=== PATIENT | female | born 1960 | race African-American/Black ===

== ENCOUNTER → 2019-06-17 | Outpatient (CLI) | payer MEDICARE, MEDICAID ==
--- NOTE | 2019-06-17 15:10 | RAD ---
Right rib series with PA chest: Reason for examination: Right rib pain. A TENS unit is present at the thoracic spine The heart size is normal. Mediastinum is unremarkable. Lung dorantes are clear. No acute bony abnormalities evident. 3 views of the right ribs show no evidence of fracture. The bone density is normal. IMPRESSION: No acute cardiopulmonary disease. No right rib abnormality evident. Electronically signed by: Natali Ramirez MD (06/17/2019 12:36 PM) [id number]
== END ==
LOC: PMG 11:59
PROVIDERS: ATTEND Physician Assistant
DX: R07.81 Pleurodynia (principal)
CPT/HCPCS: 71101

== ENCOUNTER → 2019-07-23 | Outpatient (CLI) | payer MEDICARE, MEDICAID ==
[~2019-07-23] MED LIST: IOHEXOL 300 MG/ML 75 ML VIAL. IV ONE
--- NOTE | 2019-07-23 13:29 | RAD ---
CT CHEST ABDOMEN W/CONTRAST dated 07/23/2019 12:00 AM Indication:Ll pleuritic pain.Chest pain.. Comparison: No comparison is available. Technique: Contiguous axial imaging of the chest and abdomen performed following the intravenous administration of 75 cc Isovue-370. One or more of the following individualized dose reduction techniques were utilized for this examination: 1. Automated exposure control 2. Adjustment of the mA and/or kV according to patient size 3. Use of iterative reconstruction technique Findings: Heart size within normal limits. No pericardial effusion. Scattered coronary calcifications. No mediastinal, hilar or axillary lymphadenopathy. Thyroid gland unremarkable. Central airways are patent. There is moderate emphysema. Lungs are clear. No consolidation or pleural effusion. No pneumothorax. No suspicious pulmonary nodule or mass. Liver, spleen, pancreas, adrenal glands unremarkable. There are small low-density foci within the liver that most likely represent cysts but are difficult to accurately characterize. No biliary ductal dilatation. Gallbladder unremarkable. There is a small nodular focus of hyperenhancement within the lateral segment left lobe liver on coronal image 46 that measures 7 mm in size. This area is isodense to liver on the venous phase. Adrenal glands and kidneys are unremarkable. No hydronephrosis. Well-circumscribed low-density focus at the upper pole right kidney, likely cyst. Unopacified GI tract is normal in caliber and contour. No focal bowel wall thickening. No inflammatory stranding in the mesentery. The appendix is not clearly identified. No ascites or lymphadenopathy. There are atherosclerotic aspirations of the abdominal aorta and bilateral iliac system without focal aneurysm. Bone windows show no acute findings. Multilevel spondylosis. Spinal stimulator device in place. No apparent rib fracture. IMPRESSION: 1. No acute abnormality of chest. 2. Moderate emphysema. 3. Indeterminate small hyperenhancing nodule within the left lobe liver, possibly a small flash filling hemangioma or area of focal nodular hyperplasia. If there is a known history of malignancy, metastatic cannot be excluded. Correlate clinically. Follow-up imaging may be warranted to ensure stability. Electronically signed by: Mohit Delarosa MD (07/23/2019 1:26 PM) [facility]
== END ==
LOC: CT 12:06
PROVIDERS: ATTEND Physician Assistant
DX: J43.9 Emphysema, unspecified (principal); R92.8 Other abnormal and inconclusive findings on diagnostic imaging of breast; R91.1 Solitary pulmonary nodule; I25.10 Atherosclerotic heart disease of native coronary artery without angina pectoris
CPT/HCPCS: 71260; 74160; Q9967

== ENCOUNTER → 2019-08-06 | Outpatient (CLI) | payer MEDICARE, MEDICAID ==
--- NOTE | 2019-08-06 13:16 | RAD ---
ABDOMEN COMPLETE History: Right upper quadrant abdominal pain, left liver lesion Comparison: CT exam July 23, 2019 Findings: Multiple sonographic images of the abdomen are submitted. Liver lesion on CT is not well visualized by ultrasound. Hepatic echogenicity is within normal limits. Pancreas is poorly seen due to bowel gas. Right kidney measured 10.8 x 4.5 x 3 cm, no hydronephrosis. There is a 3 to hypoechoic lesion laterally of the mid to superior right kidney about 1.7 cm greatest dimension. Left kidney measured 9.8 x 4.9 x 4.5 cm, no hydronephrosis, some contour deformity likely due to a dromedary hump. Spleen is poorly visualized due to bowel gas. Abdominal aorta and inferior vena cava are also not well visualized due to bowel gas. Gallbladder is present without intraluminal abnormality, wall thickening, or pericholecystic fluid. Common bile duct is within normal limits about 0.2 cm. Impression: 1. Abdominal structures are poorly seen due to bowel gas as stated. Liver lesion on CT is not well visualized by ultrasound, would be more accurately characterized by MRI or CT follow-up to assess stability. There is a right renal cyst. Electronically signed by: Jonas Juarez MD (08/06/2019 1:13 PM) [id number]
--- NOTE | 2019-08-06 14:16 | RAD ---
CLINICAL INDICATION: HANK JOHNSON, who is 58 years of age, presents for further evaluation of a mammographic abnormality in the left breast. COMPARISON: Prior mammographic imaging dating back to 06/27/2016 TECHNIQUE: Diagnostic views of the right breast were obtained including spot compression views in the CC and MLO projection, utilizing digital technique. BREAST COMPOSITION: There are scattered fibroglandular densities. MAMMOGRAM FINDINGS: Well circumscribed masses are seen in the upper outer left breast approximately 5-6 cm from the nipple, better evaluated on the spot compression images. A clip is seen within the larger lesion. No suspicious calcifications are seen. Therefore ultrasound was performed. ULTRASOUND FINDINGS: Targeted ultrasound of the mammographic area of concern was performed. 1:00 position, 4 cm from the left nipple: A 0.7 cm well-circumscribed hypoechoic structure mass is seen with internal echogenic focus, possibly biopsy clip. 2:00 position, 3 cm from the left nipple: A 0.3 cm lentiform lesion is seen with central increased echogenicity, likely benign-appearing lymph node. IMPRESSION: 1. Left breast probably benign mass for which follow up is recommended. RECOMMENDATION: In the absence of new clinical symptoms or change in physical exam, short term follow up diagnostic examination is recommended in 6 months to assess for interval stability to include mammogram and ultrasound. BIRADS 3: PROBABLY BENIGN Electronically signed by: Ellis Kolb MD (08/06/2019 2:13 PM) [facility]
== END ==
LOC: US 12:35
PROVIDERS: ATTEND Physician Assistant
DX: N28.1 Cyst of kidney, acquired (principal); K76.9 Liver disease, unspecified; R92.8 Other abnormal and inconclusive findings on diagnostic imaging of breast
CPT/HCPCS: 76641; 76700; 77065

== ENCOUNTER → 2019-08-27 | Outpatient (CLI) | payer MEDICARE, MEDICAID ==
--- NOTE | 2019-08-27 09:29 | RAD ---
SMALL BOWEL SERIES 08/27/2019. Reason for study: Abdominal pain. Comparison studies: None.. Technique: Preliminary sample box maker film of the abdomen was obtained. Then following ingestion of oral barium, 7 serial images of the abdomen were obtained to assess progress of contrast throughout the small bowel. Findings: Transit time through the small bowel is normal. No evidence for bowel obstruction or dilatation. Jejunal and ileal fold patterns are normal with no evidence for inflammatory bowel disease. There is a small ileal diverticulum measuring 0.8 cm. The terminal ileum was unremarkable. Battery pack projects over the right lower abdomen with leads projecting over the spinal canal. Surgical clips are identified in the right pelvis. IMPRESSION: 1. No evidence for small bowel obstruction. 2. Small bowel fold pattern appears to be within normal limits. 3. Small small bowel diverticulum in the left lower quadrant, likely within an ileal bowel loop. Electronically signed by: Naida Ortega MD (08/27/2019 9:26 AM) [facility]
== END ==
LOC: RAD 07:46
PROVIDERS: ATTEND Internal Medicine Gastroenterology
DX: K57.10 Diverticulosis of small intestine without perforation or abscess without bleeding (principal)
CPT/HCPCS: 74250

== ENCOUNTER → 2019-09-04 | Outpatient (CLI) | payer MEDICARE, MEDICAID ==
--- NOTE | 2019-09-04 09:38 | RAD ---
Meckel scan INDICATION: Abdominal pain for 2 months COMPARISON: Small bowel series of 08/27/2019 TECHNIQUE: Imaging of the abdomen was performed continuously over 48 minutes following IV administration of 10 mCi of technetium pertechnetate. FINDINGS: Physiologic gastric activity is evident in the stomach with progressive accumulation of radiopharmaceutical in the urinary tract. However, no abnormal uptake is otherwise identified in the bowel to suggest the presence of ectopic gastric mucosa. IMPRESSION: Negative Meckel's scan Electronically signed by: Salbador Irving MD (09/04/2019 9:35 AM) [id number]
== END | disposition home or self-care (01) ==
LOC: NM 07:34
PROVIDERS: ATTEND Internal Medicine Gastroenterology
DX: R10.9 Unspecified abdominal pain (principal)
CPT/HCPCS: 78290; 96374; A9512

== ENCOUNTER 2019-10-09 15:56 | Emergency (ER) | payer MEDICARE, MEDICAID ==
[~2019-10-09] VITALS: Ht 149.9 cm; Wt 57.7 kg
[2019-10-09] MEDS ORDERED: IV NORMAL SALINE 1,000ML 1,000 ML IV ONE (16:30)
--- NOTE | 2019-10-09 16:38 | PHYS DOC ---
General Adult EDM: Chief Complaint: HEADACHE HPI: HPI: 59-year-old female presents with headache. She has had this headache since yesterday. It starts in the office and radiates forward to the front of her head. This is similar to her previous migraines. She only gets them every few months. She tries not to come to the emergency room. This will just go away. She denies any trauma, falls, or other injury. She has photophobia. She does not complain of any other symptoms at this time. Review of Systems: Review of Systems: Constitutional: Denies fever or chills Eyes: Denies change in visual acuity HENT: Denies nasal congestion or sore throat Respiratory: Denies cough or shortness of breath Cardiovascular: Denies chest pain or edema GI: Denies abdominal pain, nausea, vomiting, bloody stools or diarrhea : Denies dysuria Musculoskeletal: Denies back pain or joint pain Integument: Denies rash Neurologic: Headache. Denies focal weakness or sensory changes Endocrine: Denies polyuria or polydipsia Lymphatic: Denies swollen glands Psychiatric: Denies depression or anxiety Heart Score: Risk Factors: Risk Factors: DM, Current or recent (<one month) smoker, HTN, HLP, family history of CAD, obesity. Risk Scores: Score 0 - 3: 2.5% MACE over next 6 weeks - Discharge Home Score 4 - 6: 20.3% MACE over next 6 weeks - Admit for Clinical Observation Score 7 - 10: 72.7% MACE over next 6 weeks - Early Invasive Strategies Current Medications: Current Meds: Current Medications Medications (Trade) Dose Ordered Sig/Raghu Start Time Stop Time Status Last Admin Dose Admin Sodium Chloride 1,000 ml @ 1,000 mls/hr 1X ONCE 10/09/19 16:30 10/09/19 17:29 Allergies: Allergies: Allergies Coded Allergies Type Severity Reaction Last Updated Verified watermelon Allergy Severe Hives 10/09/19 Yes Penicillins Allergy Intermediate 10/09/19 Yes milk Allergy Intermediate 10/09/19 Yes prednisone Allergy Intermediate 10/09/19 Yes tetracycline Allergy Intermediate 10/09/19 Yes aspirin Allergy Mild Nausea and Vomiting 10/09/19 Yes Physical Exam: PE: Constitutional: Well developed, well nourished, no acute distress, non-toxic appearance. [] HENT: Normocephalic, atraumatic, bilateral external ears normal, oropharynx moist, no oral exudates, nose normal. [] Eyes: PERRLA, EOMI, conjunctiva normal, no discharge. Photophobia. [] Neck: Normal range of motion, no tenderness, supple, no stridor. [] Cardiovascular: Heart rate regular rhythm, no murmur [] Lungs & Thorax: Bilateral breath sounds clear to auscultation [] Abdomen: Bowel sounds normal, soft, no tenderness, no masses, no pulsatile masses. [] Skin: Warm, dry, no erythema, no rash. [] Back: No tenderness, no CVA tenderness. [] Extremities: No tenderness, no cyanosis, no clubbing, ROM intact, no edema. [] Neurologic: Alert and oriented X 3, normal motor function, normal sensory function, no focal deficits noted. [] Psychologic: Affect normal, judgement normal, mood normal. [] EKG: EKG: [] Radiology/Procedures: Radiology/Procedures: [] Course & Med Decision Making: Course & Med Decision Making Pertinent Labs and Imaging studies reviewed. (See chart for details) The patient's labs are unremarkable. Her urinalysis is negative for infection. For her headache she was given 1 L normal saline, 30 mg of Toradol, 10 mg of Reglan, 25 mg of Benadryl. The patient is feeling better at this time. She is stable for discharge. [] Dragon Disclaimer: Dragon Disclaimer: This electronic medical record was generated, in whole or in part, using a voice recognition dictation system. Departure Departure: Impression: Primary Impression: Migraine headache without aura Qualified Codes: G43.019 - Migraine without aura, intractable, without status migrainosus Disposition: HOME/RESIDENCE PRIOR TO ADM Condition: STABLE Referrals: DAVION MACIAS (PCP) Patient Instructions: Migraine Headache, [id number] Justification of Admission: Justification of Admission: Justification of Admission Dx: N/A CARLITO MALDONADO DO Oct 09, 2019 16:38
[2019-10-09] MEDS ORDERED: diphenhydrAMINE 50 MG/ML VIAL IVP ONE (16:45)
[2019-10-09] MEDS ORDERED: METOCLOPRAMIDE HCL 10 MG/2 ML VIAL. IVP ONE (16:45)
[2019-10-09] MEDS ORDERED: KETOROLAC 30 MG/ML VIAL. IVP ONE (16:45)
[2019-10-09 17:17] LABS: BASO # 0.2 x10^3/uL (0.0-0.2); BASO % 4 % (0-3); EOS # 0.2 x10^3/uL (0.0-0.7); EOS % 3 % (0-3); HEMATOCRIT 42.8 % (36.0-47.0); HEMOGLOBIN 14.3 g/dL (12.0-15.5); LYMPH # 2.5 x10^3/uL (1.0-4.8); LYMPH % 42 % (24-48); MEAN CORPUSCULAR HEMOGLOBIN 32 pg (25-35); MEAN CORPUSCULAR HGB CONC 33 g/dL (31-37); MEAN CORPUSCULAR VOLUME 95 fL (79-100); MONO # 0.4 x10^3/uL (0.0-1.1); MONO % 7 % (0-9); NEUT # 2.6 x10^3uL (1.8-7.7); NEUT % 44 % (31-73); PLATELET COUNT 325 x10^3/uL (140-400); RED BLOOD COUNT 4.51 x10^6/uL (3.50-5.40); RED CELL DISTRIBUTION WIDTH 14.3 % (11.5-14.5); WHITE BLOOD COUNT 5.8 x10^3/uL (4.0-11.0)
[2019-10-09 17:29] LABS: GFR 68.2; POTASSIUM 3.7 mmol/L (3.5-5.1)
[2019-10-09 17:35] LABS: CLARITY,URINE CLEAR; COLOR,URINE YELLOW
[2019-10-09 17:36] LABS: ALBUMIN 3.5 g/dL (3.4-5.0); ALBUMIN/GLOBULIN RATIO 0.9 (1.0-1.7); BACTERIA,URINE 0 /HPF (0-FEW); BILIRUBIN,URINE NEG (NEG); GLUCOSE,URINE NEG (NEG); NITRITE,URINE NEG (NEG); SQUAMOUS EPITHELIAL CELL,UR FEW /LPF; TOTAL BILIRUBIN 0.2 mg/dL (0.2-1.0); TOTAL PROTEIN 7.4 g/dL (6.4-8.2); WBC,URINE OCC /HPF (0-4); YEAST,URINE PRESENT /HPF
[2019-10-09 17:41] VITALS: BP 137/71
[2019-10-09 19:33] LABS: % EOS 2 % (0-5); % LYMPHS 44 % (24-48); % MONOS 8 % (0-10); % SEGS 46 % (35-66)
[2019-10-09 19:34] LABS: PLT ESTIMATE ADEQUATE (ADEQUATE)
== END 2019-10-09 17:54 | disposition home or self-care (01) ==
LOC: ER 15:56
DX: G43.019 Migraine without aura, intractable, without status migrainosus (principal); Z88.0 Allergy status to penicillin; Z91.011 Allergy to milk products; Z88.8 Allergy status to other drugs, medicaments and biological substances; Z88.1 Allergy status to other antibiotic agents; Z88.6 Allergy status to analgesic agent; Z91.018 Allergy to other foods
CPT/HCPCS: 36415; 80053; 81001; 85007; 85025; 96374; 96375; 99284; J1200; J1885; J2765; J7030

== ENCOUNTER → 2020-03-17 | Outpatient (CLI) | payer MEDICARE, MEDICAID ==
--- NOTE | 2020-03-17 12:45 | RAD ---
EXAM: Right shoulder, 3 views. HISTORY: Pain. COMPARISON: None. FINDINGS: 3 views of the right shoulder obtained. There is no acute fracture, dislocation or subluxat ion. There is mild inferior glenohumeral spurring. IMPRESSION: Mild glenohumeral osteoarthritis. Electronically signed by: Chelly Vargas MD (03/17/2020 12:42 PM) [id number]
== END ==
LOC: DXRAD 12:07
PROVIDERS: ATTEND Orthopaedic Surgery
DX: M19.011 Primary osteoarthritis, right shoulder (principal); M77.8 Other enthesopathies, not elsewhere classified
CPT/HCPCS: 73030

== ENCOUNTER → 2020-06-16 | Outpatient (CLI) | payer MEDICARE, MEDICAID ==
--- NOTE | 2020-06-17 07:51 | RAD ---
Exam Date: 06/16/2020 1:28 PM XR SHOULDER_RIGHT 2+ VIEWS Indication: Reason: RIGHT SHOULDER PAIN, AP, SCAPULAR Y AND AXILLARY / Spl. Instructions: / History: COMPARISON: March 17, 2020 FINDINGS/ IMPRESSION: There is osteolysis of the distal clavicle which is nonspecific but could be postoperative, posttraum atic, or degenerative. No acute fracture or dislocation. Mild degenerative changes are noted. Alignment is maintained. The soft tissues are within normal limits. Electronically signed by: Fadi Alex MD (06/17/2020 7:48 AM) [id number]
== END ==
LOC: CT 13:18
PROVIDERS: ATTEND Orthopaedic Surgery
DX: M89.511 Osteolysis, right shoulder (principal); M19.011 Primary osteoarthritis, right shoulder
CPT/HCPCS: 73030

== ENCOUNTER 2020-08-10 15:49 | Emergency (ER) | payer MEDICARE, MEDICAID ==
[~2020-08-10] VITALS: Ht 149.9 cm; Wt 44.4 kg
--- NOTE | 2020-08-10 16:19 | PHYS DOC ---
Past History Past Medical History: Asthma, Migraines (KYLEE FOX APRN) Past Surgical History: No Surgical History (KYLEE FOX APRN) Alcohol Use: None (KYLEE FOX APRN) General Adult EDM: Chief Complaint: BLOOD IN URINE HPI: HPI: Patient is a 59-year-old female presents with left flank pain and dysuria. Patient states that she was seen by her PCP, Dr. Macias this morning and was told she had blood in her urine. Patient is also reporting nausea. Patient denies vomiting, diarrhea, fever. Patient reports taking Tylenol prior to arrival with no relief. Patient denies history of kidney stones. Patient has history of COPD. (KYLEE FOX APRN) Review of Systems: Review of Systems: Constitutional: Denies fever or chills Eyes: Denies change in visual acuity HENT: Denies nasal congestion or sore throat Respiratory: Denies cough or shortness of breath Cardiovascular: Denies chest pain or edema GI: Denies abdominal pain, nausea, vomiting, bloody stools or diarrhea : Reports dysuria Musculoskeletal: Denies back pain or joint pain Integument: Denies rash Neurologic: Denies headache, focal weakness or sensory changes Endocrine: Denies polyuria or polydipsia Lymphatic: Denies swollen glands Psychiatric: Denies depression or anxiety (KYLEE FOX APRN) Allergies: Allergies: Allergies Coded Allergies Type Severity Reaction Last Updated Verified watermelon Allergy Severe Hives 10/09/19 Yes Penicillins Allergy Intermediate 10/09/19 Yes milk Allergy Intermediate 10/09/19 Yes prednisone Allergy Intermediate 10/09/19 Yes tetracycline Allergy Intermediate 10/09/19 Yes aspirin Allergy Mild Nausea and Vomiting 10/09/19 Yes (KYLEE FOX APRN) Physical Exam: PE: Constitutional: Well developed, well nourished, no acute distress, non-toxic ap pearance. [] HENT: Normocephalic, atraumatic, bilateral external ears normal, oropharynx moist, no oral exudates, nose normal. [] Eyes: PERRLA, EOMI, conjunctiva normal, no discharge. [] Neck: Normal range of motion, no tenderness, supple, no stridor. [] Cardiovascular:Heart rate regular rhythm, no murmur [] Lungs & Thorax: Bilateral breath sounds clear to auscultation [] Abdomen: Bowel sounds normal, soft, no tenderness, no masses, no pulsatile masses. [] Skin: Warm, dry, no erythema, no rash. [] Back: No tenderness, left CVA tenderness. [] Extremities: No tenderness, no cyanosis, no clubbing, ROM intact, no edema. [] Neurologic: Alert and oriented X 3, normal motor function, normal sensory function, no focal deficits noted. [] Psychologic: Affect normal, judgement normal, mood normal. [] (KYLEE FOX APRN) EKG: EKG: [] (KYLEE FOX APRN) Radiology/Procedures: Radiology/Procedures: []Examination: CT of the abdomen pelvis without contrast HISTORY: History of blood in the urine COMPARISON: 07/23/2019 TECHNIQUE: Axial CT images of the abdomen pelvis were performed without contrast. Coronal and sagittal reformats are performed Exposure: One or more of the following individualized dose reduction techniques were utilized for this examination: 1. Automated exposure control 2. Adjustment of the mA and/or kV according to patient size 3. Use of iterative reconstruction technique FINDINGS: The bibasilar lungs are clear. No evidence of free air identified in the abdomen. The evaluation of the solid organs is limited due to lack of IV contrast. The evaluation of bowel is limited due to lack of oral contrast. The visualized noncontrasted liver, spleen, adrenals grossly appears unremarkable. Cholecystectomy changes identified. Small hiatal hernia. The stomach is mildly distended. The visualized pancreas grossly appears unremarkable The small bowel is nondilated. Feces and gas noted in the colon. 1.5 cm cyst right kidney. No evidence of intrarenal collecting system calculi or hydronephrosis. Urinary bladder is mildly distended. Moderate aortic atherosclerosis. Moderate degenerative changes lumbar spine. IMPRESSION: 1. No evidence of intrarenal collecting system calculi or hydronephrosis. 2. Small hiatal hernia. 3. Cholecystectomy changes. Electronically signed by: Cecilio Hylton MD (08/10/2020 4:56 PM) [id number] (KYLEE FOX APRN) Heart Score: C/O Chest Pain: No Risk Factors: Risk Factors: DM, Current or recent (<one month) smoker, HTN, HLP, family history of CAD, obesity. Risk Scores: Score 0 - 3: 2.5% MACE over next 6 weeks - Discharge Home Score 4 - 6: 20.3% MACE over next 6 weeks - Admit for Clinical Observation Score 7 - 10: 72.7% MACE over next 6 weeks - Early Invasive Strategies (KYLEE FOX APRN) Course & Med Decision Making: Course & Med Decision Making Pertinent Labs and Imaging studies reviewed. (See chart for details) [] 59-year-old, nontoxic appearing patient, presents with left flank pain and dysuria. Patient was sent in by Dr. Macias after her UA was positive for blood. Patient is also reporting nausea. CT of abdomen pelvis ordered to rule out kidney stones. UA ordered to rule out infection. Toradol, Zofran ordered for pain and nausea. Will reassess patient after results. CT of abdomen pelvis was negative for any acute abnormalities or obstruction. All other labs unremarkable.UA negative for infection. Positive for blood. Instructed patient that she will need to follow-up with her PCP if symptoms persist for further evaluation and to rule out bladder neoplasm. Patient given a copy of her CT results. Patient is appreciative and okay with discharge plan. (KYLEE FOX APRN) Course & Med Decision Making I oversaw on the above date of service of this patient and discussed the care with the SEQUENCING MACHINE OPERATOR. I agree with the findings, plan of care, and disposition as d ocumented. Patient will require outpatient urology consultation Electronically signed, Jelena Andrea DO (JELENA ANDREA DO) Leonora Disclaimer: Leonora Disclaimer: This electronic medical record was generated, in whole or in part, using a voice recognition dictation system. (KYLEE FOX APRN) Departure Departure: Impression: Primary Impression: Hematuria Qualified Codes: R31.9 - Hematuria, unspecified Disposition: HOME / SELF CARE / HOMELESS Condition: STABLE Referrals: DAVION MACIAS (PCP) Patient Instructions: Hematuria, Adult Additional Instructions: You are seen emergency room for flank pain. All of your labs were unremarkable. Your urine did show a small amount of blood, but was negative for infection. The CT of your abdomen and pelvis was negative for kidney stone or obstructions. You can take ibuprofen and Tylenol at home for discomfort. Please call your PCP tomorrow to make a follow-up appointment. I am sending you home with a copy of your CT results as well. Return emergency room with worsening symptoms or concerns. EMERGENCY DEPARTMENT GENERAL DISCHARGE INSTRUCTIONS Thank you for coming to [facility] (ED) today and trusting us with you care. We trust that you had a positivie experience in our Emergency Department. If you wish to speak to the department management, you may call the director at [phone]. YOUR FOLLOW UP INSTRUCTIONS ARE FOLLOWS: 1. Do you have a private Doctor? If you do not have a private doctor, please ask for a resource list of physicians or clinics that may be able to assist you with follow up care. 2. The Emergency Physician has interpreted your x-rays. The X-Ray specialist will also review them. If there is a change in the findings, you will be notified in 48 hours when at all possible. 3. A lab test or culture has been done, your results will be reviewed and you will be notified if you need a change in treatment. ADDITIONAL INSTRUCTIONS AND INFORMATION: 1. Your care today has been supervised by a physician who is specially trained in emergency care. Many problems require more than one evaluation for a complete diagnosis and treatment. We recommend that you schedule your follow up appointment as recommended to ensure complete treatment of you illness or injury. If you are unable to obtain follow up care and continue to have a problem, or if your condition worsens, we recommend that you return to the ED. 2. We are not able to safely determine your condition over the phone nor are we able to give sound medical advice over the phone. For these safety reasons, if you call for medical advice we will ask you to come to the ED for further evaluation. 3. If you have any questions regarding these discharge instructions please call the ED at [phone]. SAFETY INFORMATION: In the interest of safety, wellness, and injury prevention; we encourage you to wear your sealbelt, if you smoke; quite smoking, and we encourage family to use a protective helmet for bicycling and other sporting events that present an increased risk for head injury. IF YOUR SYMPTOMS WORSEN OR NEW SYMPTOMS DEVELOP, OR YOU HAVE CONCERNS ABOUT YOUR CONDITION; OR IF YOUR CONDITION WORSENS WHILE YOU ARE WAITING FOR YOUR FOLLOW UP APPOINTMENT; EITHER CONTACT YOUR PRIMARY CARE DOCTOR, THE PHYSICIAN WHOSE NAME AND NUMBER YOU WERE GIVEN, OR RETURN TO THE ED IMMEDIATELY. KYLEE FOX APRN Aug 10, 2020 16:19 JELENA ANDREA DO Aug 11, 2020 06:43
[2020-08-10] MEDS: KETOROLAC 15 MG/ML VIAL. IVP ONE (16:46)
[2020-08-10] MEDS: ONDANSETRON PF 4 MG/2 ML VIAL. IVP ONE (16:46)
[2020-08-10] MEDS: IV NORMAL SALINE 1,000ML 1,000 ML IV ONE (16:46)
[2020-08-10 16:52] LABS: BILIRUBIN,URINE NEG (NEG); CLARITY,URINE CLEAR; COLOR,URINE YELLOW; GLUCOSE,URINE NEG (NEG)
[2020-08-10 16:53] LABS: NITRITE,URINE NEG (NEG); UROBILINOGEN,URINE 0.2 mg/dL (0.2 mg/dL)
[2020-08-10 16:54] LABS: BACTERIA,URINE 0 /HPF (0-FEW); RBC,URINE RARE /HPF (0-2); SQUAMOUS EPITHELIAL CELL,UR OCC /LPF; WBC,URINE RARE /HPF (0-4)
--- NOTE | 2020-08-10 16:59 | RAD ---
Examination: CT of the abdomen pelvis without contrast HISTORY: History of blood in the urine COMPARISON: 07/23/2019 TECHNIQUE: Axial CT images of the abdomen pelvis were performed without contrast. Coronal and sagitta l reformats are performed Exposure: One or more of the following individualized dose reduction techniques were utilized for thi s examination: 1. Automated exposure control 2. Adjustment of the mA and/or kV according to patient size 3. Use of iterative reconstruction technique FINDINGS: The bibasilar lungs are clear. No evidence of free air identified in the abdomen. The evaluation of the solid organs is limited due to lack of IV contrast. The evaluation of bowel is limited due to lack of oral contrast. The visualized noncontrasted liver, spleen, adrenals grossly ap pears unremarkable. Cholecystectomy changes identified. Small hiatal hernia. The stomach is mildly distended. The visualized pancreas grossly appears unremarkable The small bowel is nondilated. Feces and gas noted in the colon. 1.5 cm cyst right kidney. No evidenc e of intrarenal collecting system calculi or hydronephrosis. Urinary bladder is mildly distended. Mod erate aortic atherosclerosis. Moderate degenerative changes lumbar spine. IMPRESSION: 1. No evidence of intrarenal collecting system calculi or hydronephrosis. 2. Small hiatal hernia. 3. Cholecystectomy changes. Electronically signed by: Cecilio Hylton MD (08/10/2020 4:56 PM) [id number]
[2020-08-10 17:09] LABS: BASO # 0.1 x10^3/uL (0.0-0.2); BASO % 1 % (0-3); EOS # 0.3 x10^3/uL (0.0-0.7); EOS % 4 % (0-3); HEMATOCRIT 39.9 % (36.0-47.0); HEMOGLOBIN 13.4 g/dL (12.0-15.5); LYMPH # 3.4 x10^3/uL (1.0-4.8); LYMPH % 50 % (24-48); MEAN CORPUSCULAR HEMOGLOBIN 32 pg (25-35); MEAN CORPUSCULAR HGB CONC 34 g/dL (31-37); MEAN CORPUSCULAR VOLUME 96 fL (79-100); MONO # 0.5 x10^3/uL (0.0-1.1); MONO % 8 % (0-9); NEUT # 2.5 x10^3uL (1.8-7.7); NEUT % 37 % (31-73); PLATELET COUNT 303 x10^3/uL (140-400); RED BLOOD COUNT 4.17 x10^6/uL (3.50-5.40); RED CELL DISTRIBUTION WIDTH 15.1 % (11.5-14.5); WHITE BLOOD COUNT 6.9 x10^3/uL (4.0-11.0)
[2020-08-10 17:23] LABS: CALCIUM 8.6 mg/dL (8.5-10.1); CREATININE 0.9 mg/dL (0.6-1.0); POTASSIUM 4.6 mmol/L (3.5-5.1)
[2020-08-10 17:29] LABS: ALBUMIN 3.4 g/dL (3.4-5.0); TOTAL BILIRUBIN 0.3 mg/dL (0.2-1.0); TOTAL PROTEIN 6.8 g/dL (6.4-8.2)
[2020-08-10 17:46] VITALS: BP 148/73
== END 2020-08-10 18:24 | disposition home or self-care (01) ==
LOC: ER 15:49
DX: R31.9 Hematuria, unspecified (principal); R30.0 Dysuria; R10.9 Unspecified abdominal pain; J45.909 Unspecified asthma, uncomplicated; G43.909 Migraine, unspecified, not intractable, without status migrainosus; Z88.0 Allergy status to penicillin; Z88.8 Allergy status to other drugs, medicaments and biological substances; Z88.6 Allergy status to analgesic agent; Z88.1 Allergy status to other antibiotic agents; Z91.011 Allergy to milk products
CPT/HCPCS: 36415; 74176; 80053; 81001; 85025; 96361; 96374; 96375; 99284; J1885; J2405; J7030

== ENCOUNTER 2020-09-24 16:09 | Emergency (ER) | payer MEDICARE, MEDICAID ==
[~2020-09-24] VITALS: Ht 149.9 cm; Wt 44.4 kg
--- NOTE | 2020-09-24 16:20 | PHYS DOC ---
Past History Past Medical History: Depression, Other Additional Past Medical Histor: chronic back pain (CARLITO MALDONADO DO) Past Surgical History: Appendectomy, Hysterectomy Additional Past Surgical Histo: R shoulder sx, neck sx (CARLITO MALDONADO DO) Alcohol Use: None (CARLITO MALDONADO DO) General Adult EDM: Chief Complaint: ALTERED MENTAL STATUS HPI: HPI: 60-year-old female presents via EMS with altered mental status. The patient tells me she does not really remember what happened. She does remember being at home and not sleeping last night. She decided to take her trazodone sleep aid today during the day. Family reported to EMS that she was acting funny and then went unresponsive. They were unable to get her to wake up. The patient tells me that she is sleepy right now and has a frontal headache, but has no other complaints. She denies alcohol or drug use. Denies recent illness. No fever or chills. (CARLITO MALDONADO DO) Review of Systems: Review of Systems: Constitutional: Denies fever or chills Eyes: Denies change in visual acuity HENT: Denies nasal congestion or sore throat Respiratory: Denies cough or shortness of breath Cardiovascular: Denies chest pain or edema GI: Denies abdominal pain, nausea, vomiting, bloody stools or diarrhea : Denies dysuria Musculoskeletal: Denies back pain or joint pain Integument: Denies rash Neurologic: Headache, sleepy. Denies focal weakness or sensory changes Endocrine: Denies polyuria or polydipsia Lymphatic: Denies swollen glands Psychiatric: Denies depression or anxiety (CARLITO MALDONADO DO) Allergies: Allergies: Allergies Coded Allergies Type Severity Reaction Last Updated Verified watermelon Allergy Severe Hives 09/24/20 Yes Penicillins Allergy Intermediate 09/24/20 Yes milk Allergy Intermediate 09/24/20 Yes prednisone Allergy Intermediate 09/24/20 Yes tetracycline Allergy Intermediate 09/24/20 Yes aspirin Allergy Mild Nausea and Vomiting 09/24/20 Yes (CARLITO MALDONADO DO) Physical Exam: PE: Constitutional: Well developed, well nourished, no acute distress, non-toxic appearance. [] HENT: Normocephalic, atraumatic, bilateral external ears normal, oropharynx moist, no oral exudates, nose normal. [] Eyes: PERRLA, EOMI, conjunctiva normal, no discharge. [] Neck: Normal range of motion, no tenderness, supple, no stridor. [] Cardiovascular: Heart rate regular rhythm, no murmur [] Lungs & Thorax: Bilateral breath sounds clear to auscultation [] Abdomen: Bowel sounds normal, soft, no tenderness, no masses, no pulsatile masses. [] Skin: Warm, dry, no erythema, no rash. [] Back: No tenderness, no CVA tenderness. [] Extremities: No tenderness, no cyanosis, no clubbing, ROM intact, no edema. [] Neurologic: Alert and oriented X 3, slow speech, but appropriate answers. [] Psychologic: Affect normal, judgement normal, mood normal. [] (CARLITO MALDONADO DO) EKG: EKG: Sinus rhythm, rate 86, normal axis, no ST elevation or depression. [] (CARLITO MALDONADO DO) Radiology/Procedures: Radiology/Procedures: [] Impressions: CT HEAD/BRAIN WO History: AMS, headache. Comparison: None. Technique: Noncontrast CT imaging was performed of the head. Findings: No intracranial hemorrhage. No mass effect. No hydrocephalus. No evidence of territorial infarction. Imaged orbits are unremarkable. Imaged paranasal sinuses and mastoid air cells are clear. No acute calvarial fracture. Impression: 1. No acute intracranial abnormality. ----- Exposure: One or more of the following individualized dose reduction techniques were utilized for this examination: 1. Automated exposure control 2. Adjustment of the mA and/or kV according to patient size 3. Use of iterative reconstruction technique. Electronically signed by: Leon Garcia MD (09/24/2020 5:19 PM) [id number] DICTATED AND SIGNED BY: LEON GACRIA MD DATE: 09/24/201717 CC: CARLITO MALDONADO DO; DAVION MACIAS OR ~MTH0 0 (CARLITO MALDONADO DO) Heart Score: C/O Chest Pain: N/A Risk Factors: Risk Factors: DM, Current or recent (<one month) smoker, HTN, HLP, family history of CAD, obesity. Risk Scores: Score 0 - 3: 2.5% MACE over next 6 weeks - Discharge Home Score 4 - 6: 20.3% MACE over next 6 weeks - Admit for Clinical Observation Score 7 - 10: 72.7% MACE over next 6 weeks - Early Invasive Strategies (CARLITO MALDONADO DO) Course & Med Decision Making: Course & Med Decision Making Pertinent Labs and Imaging studies reviewed. (See chart for details) The patient's labs are unremarkable. Her head CT is negative for acute findings. Family arrived and informed us that the patient fell after taking her medications. They are unsure if she hit her head. It was during this time that she was not responding to them. Her head CT is negative at this time. The patient is much more alert and aware at this time. Her urinalysis is pending. We have given her 2 L normal saline for her low blood pressure and hypovolemic appearance. I am signing the patient out to Dr. Sotomayor at 1800. [] (CARLITO MALDONADO DO) Course & Med Decision Making Patient's care handed off to me at checkout pending laboratory analysis and reevaluation. Patient alert and oriented in no acute distress, with no medical complaints. Patient asking to be discharged home with daughter so she can go home and eat as she is feeling better. Vital signs not concerning. Laboratory analysis notable for positive opiates, cocaine and THC. Urinalysis with some bacteria and mild leukocyte esterase and stated that she was having some urinary frequency so started on macrobid. Head CT not concerning. Discussed all findings with family and advised to call primary care physician first thing Saturday morning to update on ED visit and keep her upcoming appointment on Saturday with her primary care physician as well. Gave strict return precautions to the ED. Family grateful, verbalized understanding and agreed with plan of discharge. (FEMI SOTOMAYOR MD) Dragon Disclaimer: Dragon Disclaimer: This electronic medical record was generated, in whole or in part, using a voice recognition dictation system. (CARLITO MALDONADO DO) Departure Departure: Impression: Primary Impression: Fall Qualified Codes: W19.XXXA - Unspecified fall, initial encounter Additional Impressions: Acute hypotension Adverse reaction to drug in therapeutic use Disposition: 01 HOME / SELF CARE / HOMELESS Condition: GOOD Referrals: DAVION MACIAS (PCP) Patient Instructions: Fall Prevention and Home Safety, Substance Abuse-Brief, Urinary Tract Infection Additional Instructions: Thank you for coming into the emergency department tonight and allowing us to take care of you. Please read all of the attached information very carefully to go back over what we discussed. Please take your antibiotics as prescribed for your urinary tract infection. As discussed, please try to cease any substance use that is not prescribed by your physician. Please call your primary care physician first thing Saturday morning to update on ED visit and keep your upcoming appointment on Saturday. Please come back to the emergency department immediately with new or concerning symptoms as discussed. Scripts Nitrofurantoin Monohyd/M-Cryst (MACROBID 100 MG CAPSULE) 100 Mg Capsule 1 CAP PO BID for UTI for 5 Days, #10 CAP 0 Refills Prov: FEMI SOTOMAYOR MD 09/24/20 CARLITO MALDONADO DO Sep 24, 2020 16:20 FEMI SOTOMAYOR MD Sep 24, 2020 19:56
--- NOTE | 2020-09-24 16:22 | EKG ---
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
[2020-09-24] MEDS ORDERED: IV NORMAL SALINE 1,000ML 1,000 ML IV ONE (16:30)
[2020-09-24 16:35] LABS: BASO # 0.1 x10^3/uL (0.0-0.2); BASO % 2 % (0-3); EOS % 1 % (0-3); HEMOGLOBIN 13.8 g/dL (12.0-15.5); LYMPH # 2.8 x10^3/uL (1.0-4.8); LYMPH % 53 % (24-48); MEAN CORPUSCULAR HEMOGLOBIN 33 pg (25-35); MEAN CORPUSCULAR HGB CONC 34 g/dL (31-37); MEAN CORPUSCULAR VOLUME 98 fL (79-100); MONO # 0.4 x10^3/uL (0.0-1.1); MONO % 7 % (0-9); NEUT % 37 % (31-73); PLATELET COUNT 273 x10^3/uL (140-400); RED BLOOD COUNT 4.18 x10^6/uL (3.50-5.40); RED CELL DISTRIBUTION WIDTH 14.7 % (11.5-14.5); WHITE BLOOD COUNT 5.3 x10^3/uL (4.0-11.0)
[2020-09-24 16:45] LABS: CALCIUM 8.8 mg/dL (8.5-10.1); CREATININE 0.9 mg/dL (0.6-1.0); GFR 76.8; POTASSIUM 4.5 mmol/L (3.5-5.1)
[2020-09-24 16:52] LABS: ALBUMIN 3.5 g/dL (3.4-5.0); TOTAL BILIRUBIN 0.6 mg/dL (0.2-1.0); TOTAL PROTEIN 6.9 g/dL (6.4-8.2)
--- NOTE | 2020-09-24 17:22 | RAD ---
CT HEAD/BRAIN WO History: AMS, headache. Comparison: None. Technique: Noncontrast CT imaging was performed of the head. Findings: No intracranial hemorrhage. No mass effect. No hydrocephalus. No evidence of territorial infarction. Imaged orbits are unremarkable. Imaged paranasal sinuses and mastoid air cells are clear. No acute ca lvarial fracture. Impression: 1. No acute intracranial abnormality. ----- Exposure: One or more of the following individualized dose reduction techniques were utilized for thi s examination: 1. Automated exposure control 2. Adjustment of the mA and/or kV according to patient size 3. Use of iterative reconstruction technique. Electronically signed by: Leon Brown MD (09/24/2020 5:19 PM) [id number]
--- NOTE | 2020-09-24 17:56 | RAD ---
EXAMINATION: Chest radiograph. VIEWS: Single view COMPARISON: 07/23/2019 INDICATION:60 years, Female, altered mental status. FINDINGS: Normal cardiomediastinal silhouette. No focal consolidation. No pleural effusion or pneumothorax. No acute osseous process. IMPRESSION: No acute cardiopulmonary process. Electronically signed by: Rudolph Vergara MD (09/24/2020 5:54 PM) [facility] [place]
[2020-09-24 19:30] LABS: BILIRUBIN,URINE NEG (NEG); CLARITY,URINE HAZY; COLOR,URINE YELLOW; GLUCOSE,URINE NEG (NEG)
[2020-09-24 19:31] LABS: BACTERIA,URINE FEW /HPF (0-FEW); BARBITURATES NEG (NEG); BENZODIAZEPINES NEG (NEG); CANNABINOIDS POS (NEG); COCAINE POS (NEG); METHADONE NEG (NEG); NITRITE,URINE NEG (NEG); OPIATES POS (NEG); PHENCYCLIDINE NEG (NEG); SQUAMOUS EPITHELIAL CELL,UR OCC /LPF; UROBILINOGEN,URINE 0.2 mg/dL (0.2 mg/dL)
[2020-09-24 19:38] LABS: AMPHETAMINE/METHAMPHETAMINE NEG (NEG)
[2020-09-24] MEDS ORDERED: NITR100C62 PO (19:55)
[2020-09-24 20:06] VITALS: BP 98/60
[2020-09-24] MEDS ORDERED: NITROFURANTOIN MONOHYD/M-CRYST 100 MG CAPSULE. PO ONE (20:30)
== END 2020-09-24 20:05 | disposition home or self-care (01) ==
LOC: ER 16:09
DX: R41.82 Altered mental status, unspecified (principal); T43.215A Adverse effect of selective serotonin and norepinephrine reuptake inhibitors, initial encounter; I95.89 Other hypotension; G89.29 Other chronic pain; Z88.0 Allergy status to penicillin; Z91.011 Allergy to milk products; Z91.018 Allergy to other foods; Z88.6 Allergy status to analgesic agent; Z88.1 Allergy status to other antibiotic agents; W18.39XA Other fall on same level, initial encounter; Y93.89 Activity, other specified; Y92.89 Other specified places as the place of occurrence of the external cause; Y99.8 Other external cause status
CPT/HCPCS: 36415; 70450; 71045; 80053; 80307; 81001; 84484; 85025; 87086; 93005; 96360; 96361; 99285; J7030

== ENCOUNTER → 2020-09-28 | Outpatient (CLI) | payer MEDICARE, MEDICAID ==
[2020-09-24 20:06] VITALS: BP 98/60
[~2020-09-28] MED LIST changes: +NITR100C62 PO
--- NOTE | 2020-09-28 10:50 | RAD ---
EXAMINATION: CT abdomen and pelvis with IV contrast. CT cervical spine with IV contrast. INDICATION:60 years, Female, hematuria. Neck pain, history of discectomy, numbness down to the right arm TECHNIQUE: Axial CT images of the abdomen and pelvis were obtained. CT cervical spine with IV contras t were obtained. Coronal and sagittal reformatted performed. COMPARISON: 08/10/2020. Exposure: One or more of the following individualized dose reduction techniques were utilized for thi s examination: 1. Automated exposure control 2. Adjustment of the mA and/or kV according to patient size 3. Use of iterative reconstruction technique. FINDINGS: CERVICAL SPINE: The vertebral bodies are normal in height and alignment. No acute fracture or subluxation. Odontoid p rocess and C1/C2 articulation are preserved. Laminectomy changes at C3, L4 and C5 levels. No abnormal intra or extradural enhancement. Multilevel degenerative changes with disc space narrowing, endplate erosion and anterior osteophytes. Moderate bilateral neuroforaminal narrowing at C4-5. Moderate left neuroforaminal narrowing at C5-6. No significant canal stenosis. Visualized lungs demonstrate mild c entrilobular emphysema. Unremarkable visualized soft tissue neck. Retropharyngeal course of the right carotid artery. Unremarkable visualized brain and intracranial arteries. LOWER CHEST: Unremarkable ABDOMEN/PELVIS: Normal morphology and size of the liver with homogeneous enhancement. Subcentimeter hypodensities in the right hepatic lobe, too small to characterize. Cholecystectomy. Central intrahepatic and extrahep atic biliary ductal dilation with smooth tapering distally, likely secondary to postcholecystectomy s tatus. Unremarkable spleen and pancreas. No adrenal nodule. No hydronephrosis or nephrolithiasis in e ither kidney. Simple appearing 1.9 cm cyst in the interpolar right kidney. Subcentimeter hypodensitie s in the renal cortex, too small to characterize, statistically representing cysts. No bowel obstruction or wall thickening. Few colonic diverticulosis without diverticulitis. Appendix is not visualized. Moderate aortoiliac atherosclerotic calcifications without significant narrowing o r dilation symmetric arteries and portal vein are patent. However, high-grade stenosis at the origin of celiac trunk, may relate to median arcuate ligament syndrome. No pneumoperitoneum or ascites. No l ymphadenopathy in the abdomen or pelvis by size criteria. Underdistended urinary bladder which limits evaluation. Hysterectomy changes. No suspicious pelvic masses. MUSCULOSKELETAL: No acute osseous process or suspicious lesion. Right gluteal neurostimulator device with lead wire te rminates in the thoracic spine. IMPRESSION: 1. No acute abnormality in the abdomen or pelvis. 2. No acute osseous process of the cervical spine. 3. Laminectomy changes at C3, L4 and C5 levels with no evidence of soft tissue thickening or abnormal intra or extradural enhancement. 4. Moderate bilateral neuroforaminal narrowing at C4-5. 5. Other chronic/incidental findings, as described above. Electronically signed by: Rudolph Vergara MD (09/28/2020 10:48 AM) [id number]
== END ==
LOC: CT 08:27
PROVIDERS: ATTEND Urology
DX: M48.02 Spinal stenosis, cervical region (principal); R31.0 Gross hematuria
CPT/HCPCS: 74177; Q9967

== ENCOUNTER → 2020-09-28 | Outpatient (CLI) | payer MEDICARE, MEDICAID ==
[2020-09-24 20:06] VITALS: BP 98/60
[~2020-09-28] MED LIST changes: -IOHEXOL 300 MG/ML 75 ML VIAL. IV ONE; +IOHEXOL 300 MG/ML 75 ML VIAL. ONE
--- NOTE | 2020-09-28 10:50 | RAD ---
EXAMINATION: CT abdomen and pelvis with IV contrast. CT cervical spine with IV contrast. INDICATION:60 years, Female, hematuria. Neck pain, history of discectomy, numbness down to the right arm TECHNIQUE: Axial CT images of the abdomen and pelvis were obtained. CT cervical spine with IV contras t were obtained. Coronal and sagittal reformatted performed. COMPARISON: 08/10/2020. Exposure: One or more of the following individualized dose reduction techniques were utilized for thi s examination: 1. Automated exposure control 2. Adjustment of the mA and/or kV according to patient size 3. Use of iterative reconstruction technique. FINDINGS: CERVICAL SPINE: The vertebral bodies are normal in height and alignment. No acute fracture or subluxation. Odontoid p rocess and C1/C2 articulation are preserved. Laminectomy changes at C3, L4 and C5 levels. No abnormal intra or extradural enhancement. Multilevel degenerative changes with disc space narrowing, endplate erosion and anterior osteophytes. Moderate bilateral neuroforaminal narrowing at C4-5. Moderate left neuroforaminal narrowing at C5-6. No significant canal stenosis. Visualized lungs demonstrate mild c entrilobular emphysema. Unremarkable visualized soft tissue neck. Retropharyngeal course of the right carotid artery. Unremarkable visualized brain and intracranial arteries. LOWER CHEST: Unremarkable ABDOMEN/PELVIS: Normal morphology and size of the liver with homogeneous enhancement. Subcentimeter hypodensities in the right hepatic lobe, too small to characterize. Cholecystectomy. Central intrahepatic and extrahep atic biliary ductal dilation with smooth tapering distally, likely secondary to postcholecystectomy s tatus. Unremarkable spleen and pancreas. No adrenal nodule. No hydronephrosis or nephrolithiasis in e ither kidney. Simple appearing 1.9 cm cyst in the interpolar right kidney. Subcentimeter hypodensitie s in the renal cortex, too small to characterize, statistically representing cysts. No bowel obstruction or wall thickening. Few colonic diverticulosis without diverticulitis. Appendix is not visualized. Moderate aortoiliac atherosclerotic calcifications without significant narrowing o r dilation symmetric arteries and portal vein are patent. However, high-grade stenosis at the origin of celiac trunk, may relate to median arcuate ligament syndrome. No pneumoperitoneum or ascites. No l ymphadenopathy in the abdomen or pelvis by size criteria. Underdistended urinary bladder which limits evaluation. Hysterectomy changes. No suspicious pelvic masses. MUSCULOSKELETAL: No acute osseous process or suspicious lesion. Right gluteal neurostimulator device with lead wire te rminates in the thoracic spine. IMPRESSION: 1. No acute abnormality in the abdomen or pelvis. 2. No acute osseous process of the cervical spine. 3. Laminectomy changes at C3, L4 and C5 levels with no evidence of soft tissue thickening or abnormal intra or extradural enhancement. 4. Moderate bilateral neuroforaminal narrowing at C4-5. 5. Other chronic/incidental findings, as described above. Electronically signed by: Rudolph Vergara MD (09/28/2020 10:48 AM) [id number]
== END ==
LOC: CT 08:23
PROVIDERS: ATTEND Physician Assistant
DX: M48.02 Spinal stenosis, cervical region (principal); M25.78 Osteophyte, vertebrae; J43.2 Centrilobular emphysema; K57.30 Diverticulosis of large intestine without perforation or abscess without bleeding; I70.8 Atherosclerosis of other arteries; I70.0 Atherosclerosis of aorta; Z90.710 Acquired absence of both cervix and uterus; Z90.49 Acquired absence of other specified parts of digestive tract
CPT/HCPCS: 72126; Q9967

== ENCOUNTER → 2021-04-19 | Outpatient (CLI) | payer MEDICARE, MEDICAID ==
[~2021-04-19] MED LIST changes: -IOHEXOL 300 MG/ML 75 ML VIAL. ONE
--- NOTE | 2021-04-19 14:15 | RAD ---
EXAM: Right wrist, 3 views. HISTORY: Carpal tunnel. COMPARISON: None. FINDINGS: 3 views of the right wrist are obtained. There is no fracture, dislocation or subluxation. There is a tiny corticated ossicle adjacent to the ulnar styloid. IMPRESSION: No acute osseous finding. Electronically signed by: Chelly Vargas MD (04/19/2021 2:12 PM) [id number]
== END ==
LOC: RAD 13:56
PROVIDERS: ATTEND Orthopaedic Surgery Sports Medicine
DX: M25.531 Pain in right wrist (principal)
CPT/HCPCS: 73110